=== PATIENT | male | born 1950 | race Caucasian/White ===

== ENCOUNTER 2016-11-06 20:19 | Emergency (ER) | payer OTHER ==
[2016-11-06] MEDS ORDERED: ONDANSETRON 4 MG/2 ML VIAL ONE (20:47)
[2016-11-06] MEDS ORDERED: ASPIRIN 81 MG CHEWABLE TAB PO ONE (20:49)
[2016-11-06] MEDS ORDERED: NS 500 ML IV ONE ×2 (20:49→21:32)
--- NOTE | 2016-11-06 20:49 | EDPHY ---
H & P Time Seen by Provider: 11/06/16 20:27 HPI/ROS: CHIEF COMPLAINT: Nausea, lightheaded HISTORY OF PRESENT ILLNESS: Patient is a 66-year-old male with hypertension high cholesterol who presents emergency department with lightheadedness and dizziness. Patient states his symptoms started around 1300 while working on his computer. He developed mild nausea. He feels nausea is worse when sitting up. He had no chest pressure or tightness. No chest pain. Denies shortness of breath. No fevers or chills. No recent cough. No abdominal pain. Patient has friend come over for dinner. Prior to dinner he had 1 bourbon. He felt as though his symptoms were slightly worse. On arrival to the emergency department he had some slight emesis. REVIEW OF SYSTEMS: My complete review of systems is negative except as mentioned in the HPI. Past Medical/Surgical History: Includes high cholesterol, hypertension Past surgical history: Orthopedic surgery Social history: The patient drinks occasionally. He does not smoke. He denies drug use. Smoking Status: Former smoker Physical Exam: 36.3, 148/89, 65, 14, 98% on room air GENERAL: Well-appearing, in no acute distress, alert. HEENT: Eyes normal to inspection, normal pharynx, no signs of dehydration. NECK: No thyromegaly, no lymphadenopathy, supple. RESPIRATORY: Clear to auscultation bilaterally, no rales, rhonchi or wheezing. CVS: Regular rate and rhythm, no rubs, murmurs, or gallops. ABDOMEN: Soft, nontender, nondistended, no organomegaly. BACK: Normal to inspection, no CVA tenderness. SKIN: Normal color, no rash, warm, dry. No pallor. EXTREMITIES: No pedal edema, no calf tenderness, no Homans sign or cords, no joint swelling. NEURO/PSYCH: Higher functions: Alert and Oriented x3. Normal speech and cognition. Normal mood and affect. Cranial nerves: Normal as tested. Cerebellar: Normal as tested. Good finger to nose, good [id number], normal gait. Peripheral exam: Normal motor exam. Normal sensation. Normal reflexes. Constitutional: Initial Vital Signs Temperature (C) 36.3 C 11/06/16 20:21 Heart Rate 65 11/06/16 20:21 Respiratory Rate 14 11/06/16 20:21 Blood Pressure 148/89 H 11/06/16 20:21 O2 Sat (%) 98 11/06/16 20:21 O2 Delivery Mode Room Air Allergies/Adverse Reactions: anesthesia Allergy (Uncoded 12/29/13 12:13) Home Medications: Medication Instructions Recorded Aspirin 81mg (OTC) 12/29/13 Lipitor 20 mg (RX) 12/29/13 Magnesium 12/29/13 Norvasc 12/29/13 Medical Decision Making ED Course/Re-evaluation: In the emergency department discussed possible etiologies with the patient. I answered all his questions. IV was placed. Patient was given normal saline 500 mL IV for hydration. Laboratory studies, EKG were ordered. Patient was given aspirin 324 mg orally. The patient was given Zofran 4 mg IV for nausea. EKG shows normal sinus rhythm, normal rate, normal axis, normal intervals. There are no ST or T-wave abnormalities. EKG is normal as interpreted by me. Patient had an episode of emesis in the emergency department. He felt better after vomiting. He did denies any further anti nausea medicine. I reviewed the patient's laboratory studies. His CBC was unremarkable. He is not anemic. His chemistry panel was normal. LFTs were elevated with the total bili of 1.9 and in a unconjugated bili of 1.6. I compared this with a previous values. He has had elevated LFTs previously. Patient's troponin is negative. Of note, patient's symptoms started at 1300. He 2210: The patient states he want to be discharged home. I discussed the limitations of testing thus far. I did offer the patient admission. I answered all his questions. He is competent to make his decision. He was given warnings prior to leaving. He will return with worsening symptoms. Differential Diagnosis: My differential includes but is not limited to ACS, acute CT, dysrhythmia, dehydration, electrolyte abnormality, sugar abnormality, CVA - Data Points Laboratory Results: Laboratory Results 11/06/16 20:30 11/06/16 20:30 11/06/16 11/06/16 20:30 20:30 WBC 8.19 10^3/uL 10^3/uL (3.80-9.50) RBC 5.47 10^6/uL 10^6/uL (4.40-6.38) Hgb 17.2 g/dL g/dL (13.7-17.5) Hct 48.9 % % (40.0-51.0) MCV 89.4 fL fL (81.5-99.8) MCH 31.4 pg pg (27.9-34.1) MCHC 35.2 g/dL g/dL (32.4-36.7) RDW 12.4 % % (11.5-15.2) Plt Count 251 10^3/uL 10^3/uL (150-400) MPV 9.1 fL fL (8.7-11.7) Neut % (Auto) 51.4 % % (39.3-74.2) Lymph % (Auto) 31.7 % % (15.0-45.0) [place] % (Auto) 11.2 % % (4.5-13.0) Eos % (Auto) 4.9 % % (0.6-7.6) Baso % (Auto) 0.7 % % (0.3-1.7) Nucleat RBC Rel Count 0.0 % % (0.0-0.2) Absolute Neuts (auto) 4.20 10^3/uL 10^3/uL (1.70-6.50) Absolute Lymphs (auto) 2.60 10^3/uL 10^3/uL (1.00-3.00) Absolute Monos (auto) 0.92 10^3/uL H 10^3/uL (0.30-0.80) Absolute Eos (auto) 0.40 10^3/uL 10^3/uL (0.03-0.40) Absolute Basos (auto) 0.06 10^3/uL 10^3/uL (0.02-0.10) Absolute Nucleated RBC 0.00 10^3/uL 10^3/uL (0-0.01) Immature Gran % 0.1 % % (0.0-1.1) Immature Gran # 0.01 10^3/uL 10^3/uL (0.00-0.10) Sodium 142 mEq/L mEq/L (134-144) Potassium 3.9 mEq/L mEq/L (3.5-5.2) Chloride 107 mEq/L mEq/L (97-110) Carbon Dioxide 20 mEq/l L mEq/l (22-31) Anion Gap 15 mEq/L mEq/L (8-16) BUN 18 mg/dL mg/dL (7-23) Creatinine 0.8 mg/dL mg/dL (0.7-1.3) Estimated GFR > 60 Glucose 131 mg/dL H mg/dL (70-100) Calcium 10.0 mg/dL mg/dL (8.5-10.4) Total Bilirubin 1.9 mg/dL H mg/dL (0.1-1.4) Conjugated Bilirubin 0.3 mg/dL mg/dL (0.0-0.5) Unconjugated Bilirubin 1.6 mg/dL H mg/dL (0.0-1.1) AST 30 IU/L IU/L (17-59) ALT 41 IU/L IU/L (21-72) Alkaline Phosphatase 94 IU/L IU/L (38-126) Troponin I < 0.012 ng/mL ng/mL (0-0.034) Total Protein 8.2 g/dL g/dL (6.3-8.2) Albumin 5.0 g/dL g/dL (3.5-5.0) Lipase 50.0 IU/L IU/L (23-300) Medications Given: Discontinued Medications Aspirin (Aspirin) 324 mg PO EDNOW ONE Stop: 11/06/16 20:50 Last Admin: 11/06/16 20:57 Dose: 324 mg Sodium Chloride (Ns) 500 mls @ 0 mls/hr IV ONCE ONE PRN Reason: As Directed Stop: 11/06/16 20:50 Last Admin: 11/06/16 20:30 Dose: 500 mls Sodium Chloride (Ns) 500 mls @ 0 mls/hr IV ONCE ONE PRN Reason: Wide Open Stop: 11/06/16 21:33 Last Admin: 11/06/16 21:32 Dose: 500 mls Ondansetron HCl (Zofran) 4 mg IVP EDNOW ONE Stop: 11/06/16 20:51 Last Admin: 11/06/16 20:53 Dose: 4 mg Ondansetron HCl (Zofran) 4 mg IVP EDNOW ONE Stop: 11/06/16 21:39 Last Admin: 11/06/16 21:42 Dose: 4 mg Departure - Departure Disposition: Home, Routine, Self-Care Clinical Impression: Dizziness, Lightheadedness Condition: Good Instructions: Lightheadedness (ED), Dizziness (ED) Additional Instructions: Return with increasing nausea, vomiting, lightheadedness, chest pain, shortness of breath, fever or any other concerns. Referrals: Driss Oquendo MD [Primary Care Provider] - 2-3 days, call for appt.
[2016-11-06] MEDS ORDERED: ONDANSETRON 4 MG/2 ML VIAL IVP ONE ×2 (20:50→21:38)
--- NOTE | 2016-11-06 20:53 | CPEKG ---
Heart Rate: 55 RR Interval: 1091 P-R Interval: 192 QRSD Interval: 86 QT Interval: 460 QTC Interval: 440 P Basalt: 41 QRS Basalt: 49 T Wave [place]: 48 EKG Severity - NORMAL ECG - EKG Impression: SINUS RHYTHM Electronically Signed By: Aileen Au 06-Nov-2016 22:31:52
[2016-11-06 21:03] LABS: % IMMATURE GRANULYOCYTES 0.1 % (0.0-1.1); ABSOLUTE IMMATURE GRANULOCYTES 0.01 10^3/uL (0.00-0.10); ADD DIFF? NO; ADD MORPH? NO; ADD SCAN? NO; ATYPICAL LYMPHOCYTE FLAG 0 (0-99); FRAGMENT RBC FLAG 0 (0-99); HEMATOCRIT 48.9 % (40.0-51.0); HEMOGLOBIN 17.2 g/dL (13.7-17.5); LEFT SHIFT FLG 0 (0-99); LIPEMIA HEMOLYSIS FLAG 90 (0-99); MEAN CELL HEMOGLOBIN 31.4 pg (27.9-34.1); MEAN CELL HEMOGLOBIN CONCENTR. 35.2 g/dL (32.4-36.7); MEAN CELL VOLUME 89.4 fL (81.5-99.8); MEAN PLATELET VOLUME 9.1 fL (8.7-11.7); PLATELET CLUMPS FLAG 10 (0-99); PLATELET COUNT 251 10^3/uL (150-400); RED BLOOD CELL COUNT 5.47 10^6/uL (4.40-6.38); RED CELL DISTRIBUTION WIDTH 12.4 % (11.5-15.2)
[2016-11-06 21:14] LABS: ALANINE AMINOTRANSFERASE 41 IU/L (21-72); ALKALINE PHOSPHATASE 94 IU/L (38-126); ANION GAP 15 mEq/L (8-16); ASPARTATE AMINOTRANSFERASE 30 IU/L (17-59); BILIRUBIN,TOTAL 1.9 mg/dL (0.1-1.4); BILIRUBIN-CONJUGATED 0.3 mg/dL (0.0-0.5); BILIRUBIN-UNCONJUGATED 1.6 mg/dL (0.0-1.1); CARBON DIOXIDE 20 mEq/l (22-31); CHLORIDE 107 mEq/L (97-110); CREATININE 0.8 mg/dL (0.7-1.3); GLOMERULAR FILTRATION RATE > 60; GLUCOSE 131 mg/dL (70-100); POTASSIUM 3.9 mEq/L (3.5-5.2); SODIUM 142 mEq/L (134-144); TOTAL PROTEIN 8.2 g/dL (6.3-8.2)
[2016-11-06 21:26] LABS: TROPONIN I < 0.012 ng/mL (0-0.034)
[2016-11-06 21:31] VITALS: RESP 16; O2SAT 97
[2016-11-06] MEDS ORDERED: ONDANSETRON 4MG PREPACK#2 BTL TAKEHOME ONE (22:13)
[2016-11-06 22:50] VITALS: BP 143/78; PULSE 66; TEMP 98.1
== END 2016-11-06 22:30 | disposition home or self-care (01) ==
DX: R42 Dizziness and giddiness (principal); I10 Essential (primary) hypertension; Z79.82 Long term (current) use of aspirin; Z87.891 Personal history of nicotine dependence
CPT/HCPCS: 93005; 96374; 96376; 99284; J2405